=== PATIENT | male | born 1960 | race African-American/Black ===

== ENCOUNTER 2017-03-06 17:10 | Emergency (ER) | payer OTHER ==
[2017-03-06 17:24] VITALS: BP 124/70
[2017-03-06] MEDS ORDERED: NORMAL SALINE 1000 ML 1,000 ML IV ONE (17:52)
[2017-03-06] MEDS ORDERED: ONDANSETRON 4 MG TAB.RAPDIS PO ONE (17:52)
[2017-03-06] MEDS ORDERED: MORPHINE SULFATE 10 MG/ML INJ IV ONE (17:52)
--- NOTE | 2017-03-06 17:58 | ER Document Report ---
ED Medical Screen (RME) - General Chief Complaint: Abdominal Pain Stated Complaint: ABDOMINAL PAIN,VOMITING Time Seen by Provider: 03/06/17 17:51 Notes: Patient states he has been constipated for approximately 5 days. He also started vomiting today. He states he has had diffuse abdominal pain. He denies any previous abdominal surgeries. TRAVEL OUTSIDE OF THE [place] IN LAST 30 DAYS: No - Related Data Allergies/Adverse Reactions: No Known Allergies Allergy (Unverified 03/06/17 17:24) Past Medical History - Social History Frequency of alcohol use: None Drug Abuse: None Endocrine Medical History: Reports: Hx Diabetes Mellitus Type 2 Renal/ Medical History: Denies: Hx Peritoneal Dialysis Physical Exam - Vital signs Vitals: Temp Pulse Resp BP Pulse Ox 98.8 F 88 16 124/70 97 03/06/17 17:22 03/06/17 17:22 03/06/17 17:22 03/06/17 17:22 03/06/17 17:22 Course - Vital Signs Vital signs: Temp Pulse Resp BP Pulse Ox 98.8 F 88 16 124/70 97 03/06/17 17:22 03/06/17 17:22 03/06/17 17:22 03/06/17 17:22 03/06/17 17:22
[2017-03-06 19:00] LABS: HEMATOCRIT 47.7 % (37.9-51.0); HEMOGLOBIN 15.8 g/dL (13.5-17.0); HGB HCT DIFFERENCE -0.3; MEAN CORPUSCULAR HEMOGLOBIN 27.4 pg (27.0-33.4); MEAN CORPUSCULAR HGB CONC 33.2 g/dL (32.0-36.0); MEAN CORPUSCULAR VOLUME 83 fl (80-97); RED BLOOD COUNT 5.78 10^6/uL (4.35-5.55); RED CELL DISTRIBUTION WIDTH 14.1 % (11.5-14.0); WHITE BLOOD COUNT 20.7 10^3/uL (4.0-10.5)
[2017-03-06 19:19] LABS: ALANINE AMINOTRANSFERASE 261 U/L (21-72); ALBUMIN 4.4 g/dL (3.5-5.0); ALKALINE PHOSPHATASE 292 U/L (38-126); ANION GAP 15 (5-19); ASPARTATE AMINO TRANSFERASE 132 U/L (17-59); BLOOD UREA NITROGEN 13 mg/dL (7-20); CALCIUM 9.9 mg/dL (8.4-10.2); CARBON DIOXIDE 22 mmol/L (22-30); CHLORIDE 102 mmol/L (98-107); CREATININE RESULT 0.83 mg/dL (0.52-1.25); GLUCOSE 128 mg/dL (75-110); POTASSIUM 4.6 mmol/L (3.6-5.0); SODIUM 139.2 mmol/L (137-145); TOTAL PROTEIN 8.2 g/dL (6.3-8.2)
[2017-03-06 19:21] LABS: BASOPHILS % (MANUAL) 0 % (0-2); EOSINOPHILS % (MANUAL) 0 % (0-6); LYMPHOCYTES % (MANUAL) 9 % (13-45); TOTAL CELLS COUNTED 100
[2017-03-06 19:24] LABS: TOXIC GRANULATION 1+
[2017-03-06 20:01] LABS: LIPASE 5957.9 U/L (23-300)
[2017-03-06] MEDS ORDERED: ONDANSETRON HCL INJ/PF 4 MG/2 ML SDV IV ONE (20:55)
[2017-03-06] MEDS ORDERED: MORPHINE SULFATE 10 MG/ML INJ IV PRN (20:55)
[2017-03-06 21:24] LABS: APPEARANCE,URINE SLIGHTLY-CLOUDY; BILIRUBIN,URINE SMALL (NEGATIVE); GLUCOSE, URINE NEGATIVE (NEGATIVE); KETONES,URINE NEGATIVE (NEGATIVE); LEUKOCYTE ESTERASE,URINE NEGATIVE (NEGATIVE); NITRITE,URINE NEGATIVE (NEGATIVE); PROTEIN,URINE 30 mg/dL (NEGATIVE); URINE SPECIFIC GRAVITY 1.024
--- NOTE | 2017-03-06 21:26 | ER Document Report ---
ED General - General Chief Complaint: Abdominal Pain Stated Complaint: ABDOMINAL PAIN,VOMITING Time Seen by Provider: 03/06/17 17:51 Notes: Patient is a 56-year-old male with a past medical history of hypertension, non- insulin-dependent diabetes, medication noncompliance who presents with 5 days of abdominal discomfort, inability to have a bowel movement, and 1 day of vomiting. Patient states that he came at the behest of his . He is a guarded historian and most of the history is as provided by his at the bedside. She relates that for the past 5 days patient has had progressively worsening pain in his abdomen, difficulty eating and drinking and has began to have vomiting today. He has no prior history of similar symptoms in the past. He has never had any abdominal surgeries. He has no prior history of bowel obstructions. Nothing seems to improve or worsen his symptoms. The patient does describe his pain as a mild, cramping, general abdominal pain. He denies anything improves or worsens the pain. Patient repeatedly states that he is here to get something to help him pass gas and have a bowel movement and would like to go home. TRAVEL OUTSIDE OF THE [place] IN LAST 30 DAYS: No - Related Data Allergies/Adverse Reactions: No Known Allergies Allergy (Unverified 03/06/17 17:24) Past Medical History - General Information source: Patient - Social History Smoking Status: Current Every Day Smoker Frequency of alcohol use: None Drug Abuse: None Lives with: Spouse/Significant other Family History: Reviewed & Not Pertinent Patient has suicidal ideation: No Patient has homicidal ideation: No Endocrine Medical History: Reports: Hx Diabetes Mellitus Type 2 Renal/ Medical History: Denies: Hx Peritoneal Dialysis Review of Systems - Review of Systems Notes: Constitutional: Negative for fever. HENT: Negative for sore throat. Eyes: Negative for visual changes. Cardiovascular: Negative for chest pain. Respiratory: Negative for shortness of breath. Gastrointestinal: Positive for abdominal pain, vomiting, and constipation Genitourinary: Negative for dysuria. Musculoskeletal: Negative for back pain. Skin: Negative for rash. Neurological: Negative for headaches, weakness or numbness. 10 point ROS negative except as marked above and in HPI. Physical Exam - Vital signs Vitals: Temp Pulse Resp BP Pulse Ox 98.8 F 88 16 124/70 97 03/06/17 17:22 03/06/17 17:22 03/06/17 17:22 03/06/17 17:22 03/06/17 17:22 Interpretation: Normal Notes: PHYSICAL EXAMINATION: GENERAL: Appears mildly uncomfortable but in no acute distress HEAD: Atraumatic, normocephalic. EYES: Pupils equal round and reactive to light, extraocular movements intact, sclera anicteric, conjunctiva are normal. ENT: nares patent, oropharynx clear without exudates. Dry mucous membranes. NECK: Normal range of motion, supple without lymphadenopathy LUNGS: Breath sounds clear to auscultation bilaterally and equal. No wheezes rales or rhonchi. HEART: Regular rate and rhythm without murmurs ABDOMEN: Soft, diffuse tenderness in the upper abdomen most appreciable in the right upper and epigastric quadrants. No rebound or guarding. EXTREMITIES: Normal range of motion, no pitting or edema. No cyanosis. NEUROLOGICAL: No focal neurological deficits. Moves all extremities spontaneously and on command. PSYCH: Somewhat agitated, redirectable SKIN: Warm, Dry, normal turgor, no rashes or lesions noted. Course - Re-evaluation Re-evalutation: 03/06/17 21:25 Presentation is quite worrisome for choledocholithiasis with an associated pancreatitis. LFTs, alk phos, bilirubin are all elevated. Patient denies any alcohol use of the elevated consistent with an acute pancreatitis. Given the constellation of his laboratories I believe a distal obstructing stone is likely etiology of patient's epigastric abdominal pain, vomiting. He has no prior history of abdominal surgeries. His white count is also noted to be markedly elevated at 20. He has been made n.p.o. IV fluids have been initiated. Will obtain ultrasound and reassess. will contact tertiary referral center for ERCP. 03/07/17 00:02 I have spent over 25 minutes at the bedside with the patient and his explaining my concerns of choledocholithiasis with associated pancreatitis at length to the patient. Patient continues to persist that he does not believe there is anything wrong with him, he does not acknowledge labs and imaging studies that I have reviewed with him at length at the bedside. His ultrasound does show findings concerning for a possible acute cholecystitis but all of this is unified well under a distal obstructing stone which would cause gallbladder swelling as well as an acute pancreatitis and the lab findings that we have seen. He has received IV Zosyn, fluids, and receives pain control approximately over 2 hours despite continuing to state that he does not feel he needs anything to help control his symptoms. His at the bedside has been involved in the conversation and is advocating for the patient to follow my care plan. 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 I have also contacted the surgeon on-call Dr. Barney who likewise agrees that patient does require an ERCP and should be transferred if he will agree. Will continue to try to address any of the patient's needs and encouraged him to comply with treatment plan. 03/07/17 03:13 The patient has chosen to leave the facility against medical advice. The relevant issues have been reviewed and discussed with the patient and family at the bedside. At the time of this assessment there is no indication for involuntary commitment. The patient is alert, oriented, and able to express clearly their reasoning for not wanting to remain in the emergency department for further treatment. The patient is not clinically psychotic, intoxicated, and denies and suicidal ideation. Differential or suspected diagnoses based on medical screening exam: Choledocholithiasis with associated acute cholecystitis and pancreatitis The patient is aware of the concerning diagnoses and acknowledges understanding of the reasons for the following recommendations: Transfer to an alternative facility for ERCP, cholecystectomy, IV antibiotics, IV fluids, and clinical monitoring The following risks were explained: , worsening clinical course, permanent disability, loss of function - Vital Signs Vital signs: Temp Pulse Resp BP Pulse Ox 98.8 F 88 16 124/70 97 03/06/17 17:22 03/06/17 17:22 03/06/17 17:22 03/06/17 17:22 03/06/17 17:22 - Laboratory Result Diagrams: 03/06/17 18:22 03/06/17 18:22 Laboratory results interpreted by me: 03/06/17 03/06/17 03/06/17 18:22 18:22 21:05 WBC 20.7 H RBC 5.78 H RDW 14.1 H Seg Neuts % (Manual) 84 H Lymphocytes % (Manual) 9 L Abs Neuts (Manual) 17.4 H Glucose 128 H Total Bilirubin 4.0 H Direct Bilirubin 3.0 H AST 132 H ALT 261 H Alkaline Phosphatase 292 H Lipase 5957.9 H Urine Protein 30 H Urine Blood SMALL H Urine Bilirubin SMALL H Urine Urobilinogen 4.0 H - Diagnostic Test Radiology reviewed: Reports reviewed Critical Care Note - Critical Care Note Total time excluding time spent on procedures (mins): 38 Comments: Critical care time spent obtaining history from patient or surrogate, discussions with consultants, development of treatment plan with patient or surrogate, evaluation of patient's response to treatment, examination of patient , ordering and performing treatments and interventions, ordering and review of laboratory studies, re-evaluation of patient's condition, ordering and review of radiographic studies and review of old charts Discharge - Discharge Clinical Impression: Acute cholecystitis, Choledocholithiasis Acute pancreatitis Qualifiers: Pancreatitis type: biliary Acute pancreatitis complication: unspecified Qualified Code(s): K85.10 - Biliary acute pancreatitis without necrosis or infection Condition: Serious Disposition: AGAINST MEDICAL ADVICE
--- NOTE | 2017-03-06 22:25 | RADIOLOGY REPORT (SQ) ---
EXAM DESCRIPTION: U/S ABDOMEN LIMITED W/O DOP COMPLETED DATE/TIME: 03/06/2017 10:12 pm REASON FOR STUDY: eval gallstone induced pancreatitis COMPARISON: None. TECHNIQUE: Dynamic and static grayscale images acquired of the abdomen and recorded on PACS. Additio nal selected color Doppler and spectral images recorded. LIMITATIONS: Study is limited due to overlying bowel gas. FINDINGS: PANCREAS: The pancreas could not be visualized due to overlying bowel gas. LIVER: No masses. Echotexture normal. LIVER VASCULATURE: Normal blood flow is identified in the portal vein. GALLBLADDER: There is generalized increased echogenicity within the gallbladder lumen with scattered focal areas of focal echogenicity consistent with gallstones as well as a component of biliary sludge . There is some thickening of the wright of the gallbladder and the possibility of cholecystitis shou ld be considered. INTRAHEPATIC DUCTS AND COMMON DUCT: CBD and intrahepatic ducts normal caliber. No filling defects. INFERIOR VENA CAVA: Not visualized AORTA: Not visualized RIGHT KIDNEY: Normal size. Normal echogenicity. No solid or suspicious masses. No hydronephrosis. No calcifications. PERITONEAL AND RIGHT PLEURAL SPACE: No ascites or effusions. OTHER: No other significant findings. IMPRESSION: Limited study as noted above. Findings consistent with multiple small gallstones as wel l as a component of biliary sludge. There is some thickening of the wright of the gallbladder and the possibility of cholecystitis should be considered. Other findings as noted above TECHNICAL DOCUMENTATION: JOB ID: [id number] [employer]- All Rights Reserved
[2017-03-06] MEDS ORDERED: PIPERACILLIN/TAZOBACTAM 3.375 GM VIAL IV ONE (23:59)
[2017-03-07] MEDS ORDERED: NORMAL SALINE 1000 ML 1,000 ML IV ONE (00:01)
== END 2017-03-07 00:30 | disposition left against medical advice (07) ==
LOC: ER 17:10
DX: K80.42 Calculus of bile duct with acute cholecystitis without obstruction (principal); K85.10 Biliary acute pancreatitis without necrosis or infection; R10.9 Unspecified abdominal pain; R11.10 Vomiting, unspecified; I10 Essential (primary) hypertension; E11.9 Type 2 diabetes mellitus without complications; F17.200 Nicotine dependence, unspecified, uncomplicated
CPT/HCPCS: 96376; 99285; 96361; 96374; 96375; 36415; 83690; 85025; 80053; 81001; 76705; S0119; J2270; J2405; J7030

== ENCOUNTER 2017-03-07 22:49 | Inpatient (IN) | payer OTHER ==
[2017-03-07 23:54] LABS: ABSOLUTE BASOPHILS # (AUTO) 0.1 10^3/uL (0.0-0.2); ABSOLUTE EOSINOPHILS # (AUTO) 0.1 10^3/uL (0.0-0.6); ABSOLUTE MONOCYTES (AUTO) 1.3 10^3/uL (0.1-1.4); ABSOLUTE NEUT (AUTO) 13.9 10^3/uL (1.7-8.2); BASOPHILS % (AUTO) 0.4 % (0-2); EOSINOPHILS % (AUTO) 0.8 % (0-6); HEMATOCRIT 43.6 % (37.9-51.0); HEMOGLOBIN 14.4 g/dL (13.5-17.0); HGB HCT DIFFERENCE -0.4; LYMPHOCYTES % (AUTO) 11.3 % (13-45); MEAN CORPUSCULAR HEMOGLOBIN 27.5 pg (27.0-33.4); MEAN CORPUSCULAR HGB CONC 33.1 g/dL (32.0-36.0); MEAN CORPUSCULAR VOLUME 83 fl (80-97); MONOCYTES % (AUTO) 7.6 % (3-13); RED BLOOD COUNT 5.25 10^6/uL (4.35-5.55); RED CELL DISTRIBUTION WIDTH 14.1 % (11.5-14.0); SEGMENTED NEUTROPHILS % (AUTO) 79.9 % (42-78); WHITE BLOOD COUNT 17.4 10^3/uL (4.0-10.5)
--- NOTE | 2017-03-08 00:09 | ER Document Report ---
ED General - General Chief Complaint: Abdominal Pain Stated Complaint: ABDOMINAL PAIN Time Seen by Provider: 03/07/17 23:08 Notes: Patient is a 56-year-old male well-known to me from our encounter yesterday who presents with ongoing right upper quadrant and epigastric abdominal pain. Please review the complete note from yesterday for the prior history. The patient has had 6 days now of persistent right upper quadrant and epigastric abdominal pain. He does describe as a constant, cramping, throbbing pain. He states eating worsens the pain. Nothing improves the pain. He was seen in the emergency department yesterday and left AGAINST MEDICAL ADVICE after being advised that he had choledocholithiasis, acute cholecystitis and pancreatitis. He denies any fever at home. He has had nausea but no vomiting today. He did not going to [place] yet today as advised TRAVEL OUTSIDE OF THE [place] IN LAST 30 DAYS: No - Related Data Allergies/Adverse Reactions: No Known Allergies Allergy (Unverified 03/06/17 17:24) Past Medical History - General Information source: Patient - Social History Smoking Status: Current Every Day Smoker Frequency of alcohol use: None Drug Abuse: None Lives with: Family Family History: Reviewed & Not Pertinent Patient has suicidal ideation: No Patient has homicidal ideation: No Endocrine Medical History: Reports: Hx Diabetes Mellitus Type 2 Renal/ Medical History: Denies: Hx Peritoneal Dialysis Review of Systems - Review of Systems Notes: Constitutional: Negative for fever. HENT: Negative for sore throat. Eyes: Negative for visual changes. Cardiovascular: Negative for chest pain. Respiratory: Negative for shortness of breath. Gastrointestinal: Positive for abdominal pain and vomiting Genitourinary: Negative for dysuria. Musculoskeletal: Negative for back pain. Skin: Negative for rash. Neurological: Negative for headaches, weakness or numbness. 10 point ROS negative except as marked above and in HPI. Physical Exam - Vital signs Vitals: Temp Pulse Resp BP Pulse Ox 98.8 F 89 16 155/73 H 96 03/07/17 23:05 03/07/17 23:05 03/07/17 23:05 03/07/17 23:05 03/07/17 23:05 Interpretation: Hypertensive Notes: PHYSICAL EXAMINATION: GENERAL: Well-appearing, well-nourished and in no acute distress. HEAD: Atraumatic, normocephalic. EYES: Pupils equal round and reactive to light, extraocular movements intact, sclera anicteric, conjunctiva are normal. ENT: nares patent, oropharynx clear without exudates. Moderately dry mucous membranes. NECK: Normal range of motion, supple without lymphadenopathy LUNGS: Breath sounds clear to auscultation bilaterally and equal. No wheezes rales or rhonchi. HEART: Regular rate and rhythm without murmurs ABDOMEN: Soft, right upper quadrant and epigastric abdominal pain on palpation. No rebound or guarding EXTREMITIES: Normal range of motion, no pitting or edema. No cyanosis. NEUROLOGICAL: No focal neurological deficits. Moves all extremities spontaneously and on command. PSYCH: Normal mood, normal affect. SKIN: Warm, Dry, normal turgor, no rashes or lesions noted. Course - Re-evaluation Re-evalutation: 03/08/17 00:15 Patient returns after being evaluated yesterday by me and leaving AGAINST MEDICAL ADVICE with concerns of an acute cholecystitis, pancreatitis, and choledocholithiasis. Patient states he has continued to have persistent upper abdominal pain today, has had nausea and been unable to tolerate oral solid intake. He states his family has convinced him to return to comply with treatment today. On repeat examination he remains a focal tenderness to the epigastric and right upper quadrant. He does appear somewhat clinically dehydrated. Vitals show hypertension but are otherwise unremarkable. Laboratories will be repeated. 03/08/17 01:11 Patient labs have markedly improved from yesterday other his lipase remains mildly elevated and he continues leukocytosis. It appears the patient has had passage of the distal obstructing stone. He does however still require a cholecystectomy given the prior evaluation. I have consulted with Dr. Mcduffie who agrees to admit the patient for cholecystectomy. IV Zosyn and fluids have been initiated. - Vital Signs Vital signs: Temp Pulse Resp BP Pulse Ox 98.8 F 89 16 155/73 H 96 03/07/17 23:05 03/07/17 23:05 03/07/17 23:05 03/07/17 23:05 03/07/17 23:05 - Laboratory Result Diagrams: 03/07/17 23:40 03/07/17 23:40 Laboratory results interpreted by me: 03/07/17 03/07/17 03/07/17 23:40 23:40 23:40 WBC 17.4 H RDW 14.1 H Seg Neutrophils % 79.9 H Lymphocytes % 11.3 L Absolute Neutrophils 13.9 H Sodium 136.6 L Glucose 145 H Hemoglobin A1c % 7.8 H Total Bilirubin 1.6 H Direct Bilirubin 1.1 H ALT 171 H Alkaline Phosphatase 235 H Lipase 709.5 H Discharge - Discharge Clinical Impression: Acute cholecystitis Condition: Good Disposition: ADMITTED INPATIENT Admitting Provider: Surgicalist - [facility] Admitted: Surgical Floor
[2017-03-08] MEDS ORDERED: NORMAL SALINE 1000 ML 1,000 ML IV ONE (00:16)
[2017-03-08] MEDS ORDERED: MORPHINE SULFATE 10 MG/ML INJ IV PRN ×2 (00:16→13:29)
[2017-03-08] MEDS ORDERED: ONDANSETRON HCL INJ/PF 4 MG/2 ML SDV IV ONE (00:16)
[2017-03-08] MEDS ORDERED: PIPERACILLIN/TAZOBACTAM 3.375 GM VIAL IV ONE ×2 (00:16→04:37)
[2017-03-08 00:22] LABS: ALANINE AMINOTRANSFERASE 171 U/L (21-72); ALBUMIN 3.8 g/dL (3.5-5.0); ALKALINE PHOSPHATASE 235 U/L (38-126); ANION GAP 11 (5-19); ASPARTATE AMINO TRANSFERASE 55 U/L (17-59); BILIRUBIN,DIRECT 1.1 mg/dL (0.0-0.4); BILIRUBIN,TOTAL 1.6 mg/dL (0.2-1.3); BLOOD UREA NITROGEN 13 mg/dL (7-20); CALCIUM 9.5 mg/dL (8.4-10.2); CARBON DIOXIDE 26 mmol/L (22-30); CHLORIDE 100 mmol/L (98-107); CREATININE RESULT 0.78 mg/dL (0.52-1.25); GLUCOSE 145 mg/dL (75-110); LIPASE 709.5 U/L (23-300); SODIUM 136.6 mmol/L (137-145); TOTAL PROTEIN 7.4 g/dL (6.3-8.2)
--- NOTE | 2017-03-08 01:21 | PDOC H&P ---
History of Present Illness Admission Date/PCP: 03/08/17 Patient complains of: Abdominal pains History of Present Illness: DELIO BAEZ is a 56 year old male who has been complaining of epigastric and right upper quadrant pains for the past 6 days. He initially came to the emergency room about 2 days ago where he had an ultrasound of the gallbladder which showed gallbladder sludge with thickened wall and but no evidence of dilated bile ducts. His LFTs were elevated as well as lipase to 5700. Bilirubin was up to 3. However today's blood work showed the bilirubin is down to 1.2 and lipase down to 700. Also he claims his urine was highly colored when he came in 2 days ago and today he sure urine is a aluminum polisher. Past Medical History Endocrine Medical History: Reports: Diabetes Mellitus Type 2 Past Surgical History Past Surgical History: Reports: None Social History Smoking Status: Current Every Day Smoker Cigarettes Packs Per Day: 1 Frequency of Alcohol Use: None Hx Recreational Drug Use: No - Advance Directive Resuscitation Status: Full Code Family History Family History: Reviewed & Not Pertinent Parental Family History Reviewed: Yes - Mother has type 2 diabetes and takes Metformin Children Family History Reviewed: No Sibling(s) Family History Reviewed.: No Medication/Allergy Home Medications: Famotidine [Pepcid 20 mg Tablet] 20 mg PO BID #12 tablet 05/30/13 Metformin HCl [Glucophage] 500 mg PO BID #60 tablet 05/30/13 Allergies/Adverse Reactions: No Known Allergies Allergy (Unverified 03/06/17 17:24) Review of Systems Constitutional: PRESENT: anorexia Eyes: PRESENT: other - No visual or hearing problems Nose, Mouth, and Throat: PRESENT: other - No sore throat Cardiovascular: PRESENT: other - No chest pain Respiratory: PRESENT: other - No cough no shortness of breath Gastrointestinal: PRESENT: as per HPI, other - Abdomen is soft but tender at the epigastric and right upper quadrant areas. Genitourinary: PRESENT: other - No dysuria Musculoskeletal: PRESENT: other - No joint pain Integumentary: PRESENT: other - No skin rash Neurological: PRESENT: other - No syncopal episode Psychiatric: PRESENT: other - No suicidal ideation Endocrine: PRESENT: other - No polyuria nor polydipsia Hematologic/Lymphatic: PRESENT: other - No easy bruisability or lymphadenopathy Physical Exam Vital Signs: Temp Pulse Resp BP Pulse Ox 98.8 F 89 16 155/73 H 96 03/07/17 23:05 03/07/17 23:05 03/07/17 23:05 03/07/17 23:05 03/07/17 23:05 Intake & Output 03/06/17 03/07/17 03/08/17 06:59 06:59 06:59 Weight 112.945 kg General appearance: PRESENT: mild distress Head exam: PRESENT: atraumatic, normocephalic Eye exam: PRESENT: conjunctiva pink Ear exam: PRESENT: normal external ear exam Mouth exam: PRESENT: moist, tongue midline Neck exam: PRESENT: full ROM Respiratory exam: PRESENT: clear to auscultation tico Cardiovascular exam: PRESENT: RRR Pulses: PRESENT: normal radial pulses Vascular exam: PRESENT: normal capillary refill GI/Abdominal exam: PRESENT: soft, tenderness - Tenderness in the epigastric and right upper quadrant areas Rectal exam: PRESENT: deferred Extremities exam: PRESENT: full ROM Musculoskeletal exam: PRESENT: ambulatory Skin exam: PRESENT: normal color, warm Results Laboratory Results: 03/07/17 23:40 03/07/17 23:40 03/07/17 03/07/17 23:40 23:40 WBC 17.4 H RBC 5.25 Hgb 14.4 Hct 43.6 MCV 83 MCH 27.5 MCHC 33.1 RDW 14.1 H Plt Count 201 Seg Neutrophils % 79.9 H Lymphocytes % 11.3 L Monocytes % 7.6 Eosinophils % 0.8 Basophils % 0.4 Absolute Neutrophils 13.9 H Absolute Lymphocytes 2.0 Absolute Monocytes 1.3 Absolute Eosinophils 0.1 Absolute Basophils 0.1 Sodium 136.6 L Potassium 4.0 Chloride 100 Carbon Dioxide 26 Anion Gap 11 BUN 13 Creatinine 0.78 Est GFR ( Amer) > 60 Est GFR (Non-Af Amer) > 60 Glucose 145 H Calcium 9.5 Total Bilirubin 1.6 H AST 55 ALT 171 H Alkaline Phosphatase 235 H Total Protein 7.4 Albumin 3.8 Lipase 709.5 H Assessment & Plan - Time Time Spent: 30 to 50 Minutes - Inpatient Certification Medical Necessity: Need For IV Fluids, Need for Pain Control, Need for IV Antibiotics, Need for Surgery - Plan Summary Plan Summary: #1 continue n.p.o. and hydration 2. Start IV antibiotics 3. Monitor lipase and LFTs and if continues to trend down patient for possible laparoscopic cholecystectomy with intraoperative cholangiogram possible open 4. Parenteral pain management
[2017-03-08] MEDS ORDERED: NORMAL SALINE 1000 ML 1,000 ML IV PRN (01:23)
[2017-03-08] MEDS ORDERED: ONDANSETRON HCL INJ/PF 4 MG/2 ML SDV IV PRN (01:35)
[2017-03-08] MEDS ORDERED: PIPERACILLIN/TAZOBACTAM 3.375 GM VIAL IV SCH (01:45)
[2017-03-08] MEDS ORDERED: NALOXONE HCL INJ/PF 0.4 MG/1 ML SDV IV PRN (01:58)
[2017-03-08] MEDS ORDERED: DEXTROSE 40% GEL 15 GM TUBE PO PRN ×2 (01:59)
[2017-03-08] MEDS ORDERED: GLUCAGON,HUMAN RECOMB 1 MG INJ IM PRN (01:59)
[2017-03-08] MEDS ORDERED: INSULIN LISPRO 100 UNIT/ML 3 ML VIAL SUBCUT PRN (01:59)
[2017-03-08] MEDS ORDERED: DEXTROSE 50%-WATER 25 GM/50 ML DISP.SYRIN IV PRN ×2 (01:59)
[2017-03-08] MEDS ORDERED: PIPERACILLIN/TAZOBACTAM 3.375 GM VIAL IV PRN (04:33)
[2017-03-08 05:36] LABS: HEMATOCRIT 39.9 % (37.9-51.0); HEMOGLOBIN 13.2 g/dL (13.5-17.0); HGB HCT DIFFERENCE -0.3; MEAN CORPUSCULAR HEMOGLOBIN 27.8 pg (27.0-33.4); MEAN CORPUSCULAR HGB CONC 33.1 g/dL (32.0-36.0); MEAN CORPUSCULAR VOLUME 84 fl (80-97); RED BLOOD COUNT 4.76 10^6/uL (4.35-5.55); RED CELL DISTRIBUTION WIDTH 14.1 % (11.5-14.0); WHITE BLOOD COUNT 15.4 10^3/uL (4.0-10.5)
[2017-03-08] MEDS: PIPERACILLIN SODIUM/TAZOBACTAM 3.375 GM in NORMAL SALINE 100 ML IV SCH ×3 (05:39→20:51)
[2017-03-08 05:58] LABS: ALANINE AMINOTRANSFERASE 143 U/L (21-72); ALBUMIN 3.2 g/dL (3.5-5.0); ALKALINE PHOSPHATASE 199 U/L (38-126); ANION GAP 10 (5-19); ASPARTATE AMINO TRANSFERASE 46 U/L (17-59); BILIRUBIN,DIRECT 0.8 mg/dL (0.0-0.4); BILIRUBIN,TOTAL 1.3 mg/dL (0.2-1.3); BLOOD UREA NITROGEN 12 mg/dL (7-20); CALCIUM 8.7 mg/dL (8.4-10.2); CARBON DIOXIDE 25 mmol/L (22-30); CHLORIDE 104 mmol/L (98-107); CREATININE RESULT 0.75 mg/dL (0.52-1.25); GLUCOSE 108 mg/dL (75-110); POTASSIUM 4.3 mmol/L (3.6-5.0); SODIUM 139.2 mmol/L (137-145); TOTAL PROTEIN 6.2 g/dL (6.3-8.2)
--- NOTE | 2017-03-08 06:33 | PDOC CONSULTATION ---
Consultation Consult Date: 03/07/17 Attending physician:: ANKIT FORREST Consult reason:: DM History of Present Illness Admission Date/PCP: 03/08/17 01:30 History of Present Illness: DELIO BAEZ is a 56 year old male who was previously diagnosed as diabetic and stopped taking medication. Patient reports that he started having abdominal pain before . He reports was a generalized abdominal pain but started to get worse on Monday localizing then to the right upper quadrant midepigastrium. He was able to eat a little according to him over the holiday, but had significant nausea and vomiting. He then began to become intolerant of all p.o. intake with vomiting. He denied any radiation of his pain. Patient was seen in the emergency department on [address] Arroyo's notes for this and diagnosed with gallstone pancreatitis. Consistent with this picture was patient's elevated liver function tests as well as a ultrasound of the gallbladder showing gallbladder wall thickening as well as sludge and small stones. Patient at that time also had an elevated lipase. Patient now re-presents to the emergency department with ongoing abdominal pain. Patient does report the pain is somewhat improved and his laboratory studies do concur with this assessment. Patient was referred to surgery for cholecystectomy and hospitalists were asked to consult for diabetes mellitus. Past Medical History Endocrine Medical History: Reports: Diabetes Mellitus Type 2 Past Surgical History Past Surgical History: Reports: None Social History Smoking Status: Current Every Day Smoker Cigarettes Packs Per Day: 1 Frequency of Alcohol Use: None Hx Recreational Drug Use: No Hx Prescription Drug Abuse: No - Advance Directive Resuscitation Status: Full Code Surrogate healthcare decision maker:: Maryam Baez, Family History Family History: DM Parental Family History Reviewed: Yes Children Family History Reviewed: Yes Sibling(s) Family History Reviewed.: Yes Medication/Allergy Home Medications: Famotidine [Pepcid 20 mg Tablet] 20 mg PO BID #12 tablet 05/30/13 Metformin HCl [Glucophage] 500 mg PO BID #60 tablet 05/30/13 Allergies/Adverse Reactions: No Known Allergies Allergy (Unverified 03/06/17 17:24) Review of Systems Constitutional: PRESENT: anorexia, chills, fatigue, weakness, weight loss - Reports 40 pounds over the last several years. ABSENT: fever(s), headache(s), weight gain Eyes: ABSENT: visual disturbances Ears: ABSENT: hearing changes Cardiovascular: ABSENT: chest pain, dyspnea on exertion, edema, orthropnea, palpitations Respiratory: ABSENT: cough, hemoptysis Gastrointestinal: PRESENT: abdominal pain, melena, nausea, vomiting. ABSENT: constipation, diarrhea, heartburn, hematemesis, hematochezia Genitourinary: ABSENT: dysuria, hematuria Musculoskeletal: ABSENT: joint swelling Integumentary: ABSENT: rash, wounds Neurological: ABSENT: abnormal gait, abnormal speech, confusion, dizziness, focal weakness, syncope Psychiatric: ABSENT: anxiety, depression, homidical ideation, suicidal ideation Endocrine: ABSENT: cold intolerance, heat intolerance, polydipsia, polyuria Hematologic/Lymphatic: ABSENT: easy bleeding, easy bruising Physical Exam Vital Signs: Temp Pulse Resp BP Pulse Ox 98.8 F 89 16 155/73 H 96 03/07/17 23:05 03/07/17 23:05 03/07/17 23:05 03/07/17 23:05 03/07/17 23:05 General appearance: PRESENT: mild distress, obese, well-developed, well- nourished Head exam: PRESENT: atraumatic, normocephalic Eye exam: PRESENT: conjunctiva pink, EOMI, PERRLA. ABSENT: conjunctival injection, scleral icterus Ear exam: PRESENT: normal external ear exam Mouth exam: PRESENT: moist, tongue midline Teeth exam: PRESENT: poor dentation Neck exam: ABSENT: JVD, lymphadenopathy, thyromegaly, tracheal deviation Respiratory exam: PRESENT: clear to auscultation tico, symmetrical, unlabored. ABSENT: accessory muscle use, rales, rhonchi, wheezes Cardiovascular exam: PRESENT: RRR, +S1, +S2. ABSENT: diastolic murmur, gallop, rubs, systolic murmur Pulses: PRESENT: normal dorsalis pedis pul Vascular exam: PRESENT: normal capillary refill GI/Abdominal exam: PRESENT: Ramirez's sign, normal bowel sounds, soft, tenderness - Right upper quadrant. ABSENT: ascites, distended, firm, guarding, mass, organolmegaly, rebound, rigid Rectal exam: PRESENT: deferred Extremities exam: PRESENT: clubbing, full ROM. ABSENT: calf tenderness, pedal edema Neurological exam: PRESENT: alert, awake, oriented to person, oriented to place , oriented to time, oriented to situation, CN II-XII grossly intact. ABSENT: motor sensory deficit Psychiatric exam: PRESENT: appropriate affect, normal mood. ABSENT: homicidal ideation, suicidal ideation Skin exam: PRESENT: dry, intact, warm. ABSENT: cyanosis, rash Results Laboratory Results: 03/07/17 03/07/17 23:40 23:40 WBC 17.4 H Hgb 14.4 Hct 43.6 Plt Count 201 Sodium 136.6 L Potassium 4.0 Chloride 100 Carbon Dioxide 26 Anion Gap 11 BUN 13 Creatinine 0.78 Glucose 145 H Calcium 9.5 Total Bilirubin 1.6 H Direct Bilirubin 1.1 H AST 55 ALT 171 H Alkaline Phosphatase 235 H Total Protein 7.4 Albumin 3.8 Lipase 709.5 H Status: Imported from PACS Assessment & Plan - Diagnosis (1) Acute cholecystitis Is this a current diagnosis for this admission?: Yes Plan: Defer treatment of patient's acute cholecystitis as well as all complications related to this to the surgical primary team. Agree with current usage of Zosyn and IV fluids as well as surgical intervention when deemed appropriate. (2) Acute pancreatitis Qualifiers: Pancreatitis type: biliary Acute pancreatitis complication: unspecified Qualified Code(s): K85.10 - Biliary acute pancreatitis without necrosis or infection Is this a current diagnosis for this admission?: Yes Plan: Patient likely suffered from a gallstone pancreatitis which appears to be resolving. Again defer treatment of this and all issues relating to this to the surgical team. 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 Will place patient on metformin once able to take p.o. (4) Obesity (BMI 30.0-34.9) Is this a current diagnosis for this admission?: Yes (5) Tobacco abuse Is this a current diagnosis for this admission?: Yes - Time Time Spent: 30 to 50 Minutes Medications reviewed and adjusted accordingly: Yes Anticipated discharge: Home Within: Other - Upon improvement of symptomatology
--- NOTE | 2017-03-08 08:13 | EKG REPORT ---
SEVERITY:- ABNORMAL ECG - SINUS RHYTHM BORDERLINE IVCD WITH LAD ABNORMAL T, CONSIDER ISCHEMIA, INFERIOR LEADS : Confirmed by: Fitz Arguelles MD 08-Mar-2017 08:12:54
[2017-03-08] MEDS ORDERED: LORAZEPAM INJ 2 MG/1 ML VIAL IV ONE (09:31)
[2017-03-08] MEDS ORDERED: BUPIVACAINE HCL 0.25% /EPINEPHRINE INJ/PF 30 ML SDV ONE (09:52)
[2017-03-08] MEDS ORDERED: DEXAMETHASONE SOD PHOSPHATE INJ 4 MG/1 ML VIAL ONE (10:26)
[2017-03-08] MEDS ORDERED: GLYCOPYRROLATE INJ 0.4 MG/2 ML VIAL ONE (10:26)
[2017-03-08] MEDS ORDERED: NEOSTIGMINE METHYLSULFATE 10 MG/10 ML VIAL ONE (10:26)
[2017-03-08] MEDS ORDERED: ONDANSETRON HCL INJ/PF 4 MG/2 ML SDV ONE (10:26)
[2017-03-08] MEDS ORDERED: ROCURONIUM BROMIDE INJ 50 MG/5 ML VIAL IV ONE (10:26)
[2017-03-08] MEDS ORDERED: LIDOCAINE 2% INJ-PF (20 MG/ML) 2 ML AMPUL ONE (10:26)
[2017-03-08] MEDS ORDERED: SUCCINYLCHOLINE CHLORIDE INJ 200 MG/10 ML VIAL ONE (10:26)
--- NOTE | 2017-03-08 11:43 | PROGRESS NOTE E ---
Progress Note NAME: DELIO BAEZ : 1960 AGE: 56Y DATE: 03/08/2017 ROOM: 413 SUBJECTIVE: The patient is currently lying in bed. The patient stated that he is extremely nervous and cannot relax. The patient states that he is terrified of the thought of surgery. The patient does have supportive family present at the bedside, active in the patient's care. I did screen the patient for alcohol or substance use, which he does candidly deny. The patient has had no reported episodes of vomiting nor diarrhea, still has some diffuse pain, and the patient does not voice any other concerns at this time. REVIEW OF SYSTEMS: Rest of review of systems negative. MEDICATIONS: Medications have been reviewed. OBJECTIVE: GENERAL: The patient is a 56-year-old -Italian male who is awake, alert. He is oriented to person, place, time, and situation. He is verbal, conversational, does not appear to be in any acute distress. VITAL SIGNS: Temperature is 98.2, pulse 60, respirations 12, blood pressure is 154/77, oxygen saturation is 98% on room air. SKIN: Warm and dry. No rash. Not diaphoretic. HEENT: Pupils equal, round, and reactive to light and accommodation. Conjunctiva is pink. No JVP. CARDIOVASCULAR SYSTEM: Heart is regular. There is no murmur or rub. CHEST: Clear, symmetrical, unlabored. ABDOMEN: Soft, nondistended. Diffusely tender. BACK: No CVA tenderness or sacral edema. EXTREMITIES: No clubbing, cyanosis, edema. PSYCHIATRIC: Pleasant, but anxious affect, pleasant mood. DIAGNOSTICS: Lab values are as follows: Hematology obtained on 03/08/2017: WBCs are 15.4, hemoglobin is 13.2, hematocrit is 39.9, platelet count is 185,000. Chemistry obtained on 03/08/2017: Sodium is 139, potassium 4.3, chloride is 104, carbon dioxide 25, BUN 12, creatinine is 0.75, glucose 108. Calcium is 8.7, bilirubin is 1.3. AST 46, ALT is 143, Alk phos 199, total protein 6.2, albumin 3.2. Lipase is 456. IMPRESSION AND PLAN: 1. ACUTE CHOLECYSTITIS. The patient is being covered with Zosyn and will go to the OR today for cholecystectomy. Do appreciate Surgery's management of this. 2. ACUTE BILIARY PANCREATITIS WITHOUT EVIDENCE OF NECROSIS. The patient most likely had a gallstone pancreatitis, which appears to be resolving. His lipase has trended down. Will follow. 3. DIABETES MELLITUS TYPE 2. Will continue sliding scale coverage for now and will be able to replace the patient on metformin once he is able to take p.o. 4. TOBACCO DEPENDENCY, CONTINUOUS. Spent 3 minutes discussing smoking cessation education. The patient declines any pharmacological intervention at this time. DISPOSITION: The patient is a FULL CODE. Pending patient's symptomatology and diagnostic findings, will re-evaluate in the a.m. Time spent on this visit, including assessment, plan, physical examination, patient education, and family meeting is 35 minutes. DICTATING PHYSICIAN: JOHNATHAN PATEL NP [id number] PHY#: [id number] ID: [id number] JOB#: [id number] ACCT: [id number] cc: >
[2017-03-08] MEDS ORDERED: HYDROMORPHONE HCL INJ/PF 2 MG/ML AMPULE ONE ×3 (11:47→14:47)
[2017-03-08] MEDS ORDERED: MIDAZOLAM 2 MG/2 ML INJ ONE (11:48)
[2017-03-08] MEDS ORDERED: FENTANYL CITRATE INJ/PF 100 MCG/2 ML AMPUL ONE ×4 (11:48→16:33)
[2017-03-08] MEDS ORDERED: EPHEDRINE SULFATE INJ 50 MG/1 ML AMPULE ONE (11:48)
[2017-03-08] MEDS ORDERED: PROPOFOL INJ 200 MG/20 ML VIAL IV ONE (11:48)
[2017-03-08] MEDS ORDERED: OXYCODONE-ACETAMINOPHEN 5-325 MG TABLET PO PRN ×2 (13:29)
[2017-03-08] MEDS ORDERED: DIPHENHYDRAMINE HCL 50 MG/ML VIAL IV PRN (13:29)
[2017-03-08] MEDS ORDERED: PROMETHAZINE HCL INJ 25 MG/1 ML VIAL IV PRN ×2 (13:29)
[2017-03-08] MEDS ORDERED: MEPERIDINE HCL/PF INJ 25 MG/1 ML DISP.SYRIN IV PRN (13:29)
[2017-03-08] MEDS ORDERED: FENTANYL CITRATE INJ/PF 100 MCG/2 ML AMPUL IV PRN ×2 (13:29)
[2017-03-08] MEDS: FENTANYL CITRATE INJ/PF 100 MCG/2 ML AMPUL IV PRN ×2 (16:35→16:47)
[2017-03-08] MEDS ORDERED: MORPHINE SULFATE 10 MG/ML INJ ONE (17:19)
[2017-03-08 17:23] LABS: HEMATOCRIT 42.9 % (37.9-51.0); HEMOGLOBIN 14.3 g/dL (13.5-17.0); MEAN CORPUSCULAR HEMOGLOBIN 27.8 pg (27.0-33.4); MEAN CORPUSCULAR HGB CONC 33.3 g/dL (32.0-36.0); MEAN CORPUSCULAR VOLUME 83 fl (80-97); RED BLOOD COUNT 5.15 10^6/uL (4.35-5.55); WHITE BLOOD COUNT 18.8 10^3/uL (4.0-10.5)
[2017-03-08 17:32] LABS: ALANINE AMINOTRANSFERASE 152 U/L (21-72); ALBUMIN 3.8 g/dL (3.5-5.0); ALKALINE PHOSPHATASE 220 U/L (38-126); ANION GAP 13 (5-19); ASPARTATE AMINO TRANSFERASE 83 U/L (17-59); BILIRUBIN,DIRECT 1.1 mg/dL (0.0-0.4); BILIRUBIN,TOTAL 1.3 mg/dL (0.2-1.3); BLOOD UREA NITROGEN 14 mg/dL (7-20); CALCIUM 8.9 mg/dL (8.4-10.2); CARBON DIOXIDE 20 mmol/L (22-30); CHLORIDE 105 mmol/L (98-107); CREATININE RESULT 1.08 mg/dL (0.52-1.25); GLUCOSE 183 mg/dL (75-110); LIPASE 241.1 U/L (23-300); POTASSIUM 4.9 mmol/L (3.6-5.0); SODIUM 138.1 mmol/L (137-145); TOTAL PROTEIN 7.1 g/dL (6.3-8.2)
--- NOTE | 2017-03-08 18:10 | RADIOLOGY REPORT (SQ) ---
EXAM DESCRIPTION: KUB/ABDOMEN (SINGLE VIEW) COMPLETED DATE/TIME: 03/08/2017 5:59 pm REASON FOR STUDY: CHECK NG PLACEMENT COMPARISON: None. NUMBER OF VIEWS: One view. TECHNIQUE: Supine radiographic image of the abdomen acquired. LIMITATIONS: None. FINDINGS: BOWEL GAS PATTERN: Large amount of large bowel gas. Considerable stool in the large bowel . The overall appearance is not of obstruction. CALCIFICATIONS: No suspicious calcifications. SOFT TISSUES: No gross mass or suggestion of organomegaly. HARDWARE: NG tube extends to the stomach and the tip is near the fundus of the stomach. BONES: No acute fracture. No worrisome bone lesions. OTHER: No other significant finding. IMPRESSION: NG tube placement as described. Findings as described. TECHNICAL DOCUMENTATION: JOB ID: [id number] [employer]- All Rights Reserved
[2017-03-08] MEDS: HYDROMORPHONE HCL INJ/PF 2 MG/ML AMPULE IV PRN (20:11)
[2017-03-09] MEDS: HYDROMORPHONE HCL INJ/PF 2 MG/ML AMPULE IV PRN ×2 (00:15→03:09)
[2017-03-09] MEDS: PIPERACILLIN SODIUM/TAZOBACTAM 3.375 GM in NORMAL SALINE 100 ML IV SCH ×5 (01:02→23:44)
[2017-03-09] MEDS: NORMAL SALINE 1000 ML 1,000 ML IV PRN ×3 (03:11→12:30)
[2017-03-09 05:23] LABS: HEMATOCRIT 41.7 % (37.9-51.0); HEMOGLOBIN 13.8 g/dL (13.5-17.0); HGB HCT DIFFERENCE -0.3; MEAN CORPUSCULAR HEMOGLOBIN 27.5 pg (27.0-33.4); MEAN CORPUSCULAR HGB CONC 33.1 g/dL (32.0-36.0); MEAN CORPUSCULAR VOLUME 83 fl (80-97); RED BLOOD COUNT 5.01 10^6/uL (4.35-5.55); RED CELL DISTRIBUTION WIDTH 14.3 % (11.5-14.0); WHITE BLOOD COUNT 17.5 10^3/uL (4.0-10.5)
[2017-03-09 05:47] LABS: ALANINE AMINOTRANSFERASE 142 U/L (21-72); ALBUMIN 3.6 g/dL (3.5-5.0); ALKALINE PHOSPHATASE 186 U/L (38-126); ANION GAP 13 (5-19); ASPARTATE AMINO TRANSFERASE 66 U/L (17-59); BILIRUBIN,DIRECT 0.9 mg/dL (0.0-0.4); BILIRUBIN,TOTAL 1.2 mg/dL (0.2-1.3); BLOOD UREA NITROGEN 15 mg/dL (7-20); CARBON DIOXIDE 22 mmol/L (22-30); CHLORIDE 107 mmol/L (98-107); CREATININE RESULT 1.09 mg/dL (0.52-1.25); GLUCOSE 119 mg/dL (75-110); LIPASE 91.4 U/L (23-300); POTASSIUM 4.8 mmol/L (3.6-5.0); SODIUM 142.1 mmol/L (137-145); TOTAL PROTEIN 6.9 g/dL (6.3-8.2)
[2017-03-09] MEDS ORDERED: NORMAL SALINE 1000 ML 1,000 ML IV PRN (09:07)
--- NOTE | 2017-03-09 09:52 | PROGRESS NOTE E ---
Progress Note NAME: DELIO BAEZ : 1960 AGE: 56Y DATE: 03/09/2017 ROOM: 320 SUBJECTIVE: The patient is currently lying in bed. He states that he does feel better today than yesterday actually prior to his surgery. The patient denies any nausea, vomiting, or diarrhea. No shortness of breath, dizziness, or chest pain. The patient admits to abdominal pain but relates it to surgical pain. The patient has been afebrile. He has significantly concentrated urine, and the patient does not voice any other concerns at this time. REVIEW OF SYSTEMS: Rest of the review of systems negative. MEDICATIONS: Have been reviewed. OBJECTIVE: GENERAL: The patient is a 56-year-old -Thai male who is awake, alert, and oriented to person, place, time, and situation. He is verbal, conversational, and does not appear to be in acute distress. VITAL SIGNS: Temperature 97.6, pulse 69, respirations 18, blood pressure 132/80, oxygen saturation is 99% on 2 L nasal cannula. SKIN: Warm and dry. No rash. He is not diaphoretic. HEENT: Pupils are reactive. NG tube is in place right. The patient has no JVP. Mucous membranes are moist. CARDIOVASCULAR: Heart is regular. There is no murmur or rub. CHEST: Clear, symmetrical, unlabored. ABDOMEN: Postsurgical. CLAUDIA drain in place. EXTREMITIES: No clubbing, cyanosis, or edema. GENITOURINARY: Abdalla is draining dark urine. DIAGNOSTICS: Lab values are as follow: Hematology obtained on 03/09/2017: WBCs are 17.5, hemoglobin is 13.8, hematocrit is 41.7, platelet count is 208,000. Chemistry obtained on 03/09/2017: Sodium is 142, potassium 4.8, chloride is 107, carbon dioxide 22, BUN 15, creatinine is 1.09, glucose 119, calcium is 9.0, bilirubin is 1.2, AST 66, ALT is 142, alk phos 186, total protein is 6.9, albumin 3.6, lipase is 91.4. IMPRESSION AND PLAN: 1. ACUTE CHOLECYSTITIS. The patient is postop day #1. The patient is being covered with Zosyn. Do appreciate Surgery's management of this. He does have a drain in place. 2. ACUTE BILIARY PANCREATITIS WITHOUT EVIDENCE OF NECROSIS. Most likely gallstone pancreatitis which appears to have resolved. 3. DIABETES MELLITUS TYPE 2. Will continue the patient's sliding scale coverage once the patient is taking p.o. Will start him on metformin. 4. TOBACCO DEPENDENCY. Will continue p.r.n. nicotine patch. DISPOSITION: Will give the patient a liter bolus. Pending patient's symptomatology and diagnostic findings, will reevaluate in the a.m. Time spent on this followup including assessment, plan, physical examination, patient education, and review of records is 25 minutes. DICTATING PHYSICIAN: JOHNATHAN PATEL NP [id number] PHY#: [id number] ID: [id number] JOB#: [id number] ACCT: [id number] cc: > MTDD
[2017-03-09] MEDS ORDERED: PHENOL/SODIUM PHENOLATE 100 SPRAY/177 ML BOTTLE PO PRN (14:56)
[2017-03-09] MEDS ORDERED: ONDANSETRON HCL INJ/PF 4 MG/2 ML SDV IV PRN (15:30)
--- NOTE | 2017-03-09 21:31 | PDOC PROGRESS REPORT ---
Subjective Progress Note for:: 03/09/17 Subjective:: abdominal pain/incisional Reason For Visit: ACUTE CHOLECYSTITIS Physical Exam Vital Signs: Temp Pulse Resp BP Pulse Ox 98.8 F 77 20 158/71 H 92 03/09/17 19:12 03/09/17 19:12 03/09/17 19:12 03/09/17 19:12 03/09/17 19:12 Intake & Output 03/08/17 03/09/17 03/10/17 06:59 06:59 06:59 Intake Total 0 82062 5165 Output Total 9875 1115 Balance 0 1325 4050 Weight 111.7 kg 115.3 kg GI/Abdominal exam: PRESENT: soft - With tenderness along the incision sites. An NG tube is intact with small amount of drainage. Results Laboratory Results: 03/09/17 04:41 03/09/17 04:41 03/09/17 03/09/17 04:41 04:41 WBC 17.5 H RBC 5.01 Hgb 13.8 Hct 41.7 MCV 83 MCH 27.5 MCHC 33.1 RDW 14.3 H Plt Count 208 Sodium 142.1 Potassium 4.8 Chloride 107 Carbon Dioxide 22 Anion Gap 13 BUN 15 Creatinine 1.09 Est GFR ( Amer) > 60 Est GFR (Non-Af Amer) > 60 Glucose 119 H Calcium 9.0 Total Bilirubin 1.2 AST 66 H ALT 142 H Alkaline Phosphatase 186 H Total Protein 6.9 Albumin 3.6 Lipase 91.4 Impressions: KUB X-Ray 03/08/17 00:00 IMPRESSION: NG tube placement as described. Findings as described. Assessment & Plan - Time Time Spent with patient: 15-24 minutes - Inpatient Certification Medical Necessity: Need For IV Fluids, Need for IV Antibiotics - Plan Summary Plan Summary: #1 discontinue the Abdalla today but leave the NG tube for today. 2. Continue IV antibiotics 3. Appreciate medical consultation. 4. Start patient on Lovenox 5. Continue monitor CBC and LFTs. Lipase has normalized now.
[2017-03-10] MEDS: HYDROMORPHONE HCL INJ/PF 2 MG/ML AMPULE IV PRN (01:53)
--- NOTE | 2017-03-10 01:53 | OPERATIVE REPORT E ---
Operative Report NAME: DELIO BAEZ : 1960 AGE: 56Y DATE OF SURGERY: 03/08/2017 ROOM: 320 PREOPERATIVE DIAGNOSIS: 1. ACUTE CALCULOUS CHOLECYSTITIS. 2. ELEVATED LFTS. 3. GALLSTONE PANCREATITIS. POSTOPERATIVE DIAGNOSIS: 1. ACUTE CALCULOUS CHOLECYSTITIS. 2. DECREASING LFTS. 3. RESOLVING GALLSTONE PANCREATITIS. OPERATION: Laparoscopic cholecystectomy. SURGEON: ANKIT FORREST M.D. ANESTHESIA: General. INDICATION: This is a 56-year-old male with about a week duration of abdominal pains. He was initially seen in the emergency room on 03/04/17 with LFTs elevated and abdominal pains. The patient went home the same day and against medical advice, only to come back on 03/07/17 for persistent abdominal pains. At this time his LFTs were coming down as well as the lipase to around 700. On the day of surgery, 03/08/17, lipase is close to normal, and LFTs also close to normal. However, patient still with considerable epigastric and right upper quadrant pains and tenderness. He had an ultrasound on the first time he was in the emergency room, and it showed gallstones, but bile ducts were not dilated. He had thickened gallbladder wall, indicating acute cholecystitis. DESCRIPTION OF PROCEDURE: After general anesthesia, the patient was placed in the supine position and the abdomen prepped and draped in the usual sterile fashion. Appropriate timeout was called. Next, an infraumbilical elliptical incision was made and the fascia identified and divided between 2 Pearl clamps. Fascial defect was then punctured with a hemostat, and finger dissection through the abdominal cavity was done. No evidence of adhesions around the puncture site. Next, a Nickolas trocar was inserted and CO2 insufflated to a pressure of 15 mmHg. The camera was inserted through the Nickolas trocar, and 3 other trocars were placed, a 12-mm in the right xiphoid and two 5-mm in the right upper quadrant. The gallbladder was then identified and noted to be markedly tense with a lot of adhesions around it. It was then decompressed with a long needle. Some of the bile was sent for culture. The tip of the gallbladder was then grasped, and blunt dissection as well as with the use of Harmonic javier was done of the adhesions around the gallbladder. This was mostly thickened omentum. The dissection was carried out gently and gingerly. We were finally able to get into the area of the cystic duct, which was noted to be markedly thickened and quite short. Therefore, a cholangiogram was not performed. The cystic duct was then clipped with hemoclips; about 3 were placed, and another one close to the gallbladder, and subsequently divided between the clips. The gallbladder was then dissected bluntly and with the use of Harmonic javier. While dissecting, part of the gallbladder wall was open, and at least a couple of small stones were extruded out, and these were subsequently retrieved with a gallstone forceps. There was a lot of sludge noted. The adhesions are so dense that it is quite difficult to definitely identify the plane in the gallbladder wall. The gallbladder was then eventually completely removed. The cystic artery was cauterized and divided with Harmonic javier. *------* what appears to be the cystic artery. The gallbladder was removed in an Endobag through the umbilical port. Next, the gallbladder bed was inspected, and it was noted to have some oozing, and this was controlled with cautery using the spatula and right angle. No active bleeding noted following this. The liver bed and around the area close to the liver bed was then copiously irrigated. I had to put another trocar on the patient's left side, then placing a fan retractor to help with better visualization of the cystic duct during the procedure. Also, some of the bowels were somewhat dilated because of ileus. Following this, 2 pieces of Surgicel were placed on the liver bed for better hemostasis. A Irvin-Sanchez drain was then placed around the area of the dissection and the liver bed and brought out through one of the trocar sites in the right upper quadrant. The drain was then anchored to the skin with 3-0 silk. The abdominal cavity was inspected at the completion of the procedure and no other abnormalities noted, other than some of the small bowel noted to be somewhat dilated. All the trocars were removed and CO2 allowed to come out of the trocar sites. A uymbza-yv-xvfrm suture using 0-Vicryl was used to close the infraumbilical fascial defect. All the skin incisions were then closed with running subcuticular 4-0 Vicryl undyed. Dermabond dressings were used to dress the incisions. The patient tolerated the procedure quite well. Estimated blood loss about 40 mL. Needle, instrument and sponge counts were all correct. The patient was brought to the recovery room in guarded condition. DICTATING PHYSICIAN: ANKIT FORREST M.D. [id number] PHY#: [id number] ID: [id number] JOB#: [id number] ACCT: [id number] cc:ANKIT FORREST M.D. >
[2017-03-10 05:27] LABS: HEMATOCRIT 39.6 % (37.9-51.0); HEMOGLOBIN 12.9 g/dL (13.5-17.0); HGB HCT DIFFERENCE -0.9; MEAN CORPUSCULAR HEMOGLOBIN 27.4 pg (27.0-33.4); MEAN CORPUSCULAR HGB CONC 32.7 g/dL (32.0-36.0); MEAN CORPUSCULAR VOLUME 84 fl (80-97); RED BLOOD COUNT 4.73 10^6/uL (4.35-5.55); RED CELL DISTRIBUTION WIDTH 14.4 % (11.5-14.0); WHITE BLOOD COUNT 16.7 10^3/uL (4.0-10.5)
[2017-03-10 05:54] LABS: ANION GAP 11 (5-19); BLOOD UREA NITROGEN 16 mg/dL (7-20); CALCIUM 9.1 mg/dL (8.4-10.2); CARBON DIOXIDE 24 mmol/L (22-30); CHLORIDE 111 mmol/L (98-107); CREATININE RESULT 0.98 mg/dL (0.52-1.25); GLUCOSE 131 mg/dL (75-110); POTASSIUM 4.4 mmol/L (3.6-5.0); SODIUM 146.4 mmol/L (137-145)
[2017-03-10] MEDS: PIPERACILLIN SODIUM/TAZOBACTAM 3.375 GM in NORMAL SALINE 100 ML IV SCH ×3 (06:45→17:43)
--- NOTE | 2017-03-10 13:23 | PDOC PROGRESS REPORT ---
Subjective Progress Note for:: 03/10/17 Subjective:: Patient is without complaints, and has passed gas. Reason For Visit: ACUTE CHOLECYSTITIS Physical Exam Vital Signs: Temp Pulse Resp BP Pulse Ox 98.5 F 76 20 199/96 H 95 03/10/17 03:51 03/10/17 03:51 03/10/17 03:51 03/10/17 03:51 03/10/17 03:51 Intake & Output 03/09/17 03/10/17 03/11/17 06:59 06:59 06:59 Intake Total 57032 6695 Output Total 9875 1965 Balance 1325 4730 Weight 115.3 kg 114.8 kg General appearance: PRESENT: no acute distress Respiratory exam: PRESENT: clear to auscultation tico Cardiovascular exam: PRESENT: RRR GI/Abdominal exam: PRESENT: normal bowel sounds, soft. ABSENT: distended, guarding, tenderness Results Laboratory Results: 03/10/17 04:44 03/10/17 04:44 03/10/17 03/10/17 04:44 04:44 WBC 16.7 H RBC 4.73 Hgb 12.9 L Hct 39.6 MCV 84 MCH 27.4 MCHC 32.7 RDW 14.4 H Plt Count 183 Sodium 146.4 H Potassium 4.4 Chloride 111 H Carbon Dioxide 24 Anion Gap 11 BUN 16 Creatinine 0.98 Est GFR ( Amer) > 60 Est GFR (Non-Af Amer) > 60 Glucose 131 H Calcium 9.1 Magnesium 2.0 Impressions: KUB X-Ray 03/08/17 00:00 IMPRESSION: NG tube placement as described. Findings as described. Assessment & Plan - Diagnosis (1) Acute cholecystitis Is this a current diagnosis for this admission?: Yes - Plan Summary Plan Summary: Nasogastric tube has been discontinued, and clear liquid diet will be started. If tolerated well, will advance to regular diet immediately. Discharge planning is for a.m.
--- NOTE | 2017-03-10 16:43 | PDOC PROGRESS REPORT ---
Subjective Subjective:: Patient seen sitting up in the chair. Denies any nausea vomiting. Complains of belching. NG tube clamp. Wants to know if he can get the tube out Reason For Visit: ACUTE CHOLECYSTITIS with abdominal pain nausea and vomiting Physical Exam Vital Signs: Temp Pulse Resp BP Pulse Ox 98.5 F 76 20 199/96 H 95 03/10/17 03:51 03/10/17 03:51 03/10/17 03:51 03/10/17 03:51 03/10/17 03:51 Intake & Output 03/09/17 03/10/17 03/11/17 06:59 06:59 06:59 Intake Total 76958 6695 Output Total 9875 1965 Balance 1325 4730 Weight 115.3 kg 114.8 kg General appearance: PRESENT: no acute distress Ear exam: PRESENT: normal external ear exam Respiratory exam: PRESENT: clear to auscultation tico. ABSENT: rales, rhonchi, wheezes Cardiovascular exam: PRESENT: RRR. ABSENT: diastolic murmur, rubs, systolic murmur Pulses: PRESENT: normal dorsalis pedis pul Vascular exam: PRESENT: normal capillary refill GI/Abdominal exam: PRESENT: diminished bowel sounds, soft, tenderness Rectal exam: PRESENT: deferred Musculoskeletal exam: PRESENT: ambulatory Neurological exam: PRESENT: alert, awake, oriented to person, oriented to place , oriented to time, oriented to situation, CN II-XII grossly intact. ABSENT: motor sensory deficit Psychiatric exam: PRESENT: appropriate affect, normal mood. ABSENT: homicidal ideation, suicidal ideation Skin exam: PRESENT: abrasion Results Laboratory Results: 03/10/17 04:44 03/10/17 04:44 03/10/17 03/10/17 04:44 04:44 WBC 16.7 H RBC 4.73 Hgb 12.9 L Hct 39.6 MCV 84 MCH 27.4 MCHC 32.7 RDW 14.4 H Plt Count 183 Sodium 146.4 H Potassium 4.4 Chloride 111 H Carbon Dioxide 24 Anion Gap 11 BUN 16 Creatinine 0.98 Est GFR ( Amer) > 60 Est GFR (Non-Af Amer) > 60 Glucose 131 H Calcium 9.1 Magnesium 2.0 Impressions: KUB X-Ray 03/08/17 00:00 IMPRESSION: NG tube placement as described. Findings as described. Assessment & Plan - Diagnosis (1) Abdominal pain Qualifiers: Abdominal location: generalized Qualified Code(s): R10.84 - Generalized abdominal pain Is this a current diagnosis for this admission?: Yes Plan: No Nausea and vomiting wanting to take the tube out. Some bowel sounds. Continue to have some tenderness. (2) Diabetes mellitus Qualifiers: Diabetes mellitus type: type 2 Diabetes mellitus complication status: without complication Diabetes mellitus fpc insulin use: without termite technician use Qualified Code(s): E11.9 - Type 2 diabetes mellitus without complications Is this a current diagnosis for this admission?: Yes (3) Obesity (BMI 30.0-34.9) Is this a current diagnosis for this admission?: Yes (4) Tobacco abuse Is this a current diagnosis for this admission?: Yes (5) Acute cholecystitis Is this a current diagnosis for this admission?: Yes (6) Acute pancreatitis Qualifiers: Pancreatitis type: biliary Acute pancreatitis complication: unspecified Qualified Code(s): K85.10 - Biliary acute pancreatitis without necrosis or infection Is this a current diagnosis for this admission?: Yes Plan: Consider advancing diet as tolerated per surgery. Abdominal pain seems to be improving some.
[2017-03-10] MEDS: NORMAL SALINE 1000 ML 1,000 ML IV PRN (17:44)
[2017-03-11] MEDS: PIPERACILLIN SODIUM/TAZOBACTAM 3.375 GM in NORMAL SALINE 100 ML IV SCH ×4 (05:54→11:45)
[2017-03-11] MEDS ORDERED: FUROSEMIDE 20 MG TABLET PO ONE (10:26)
[2017-03-11 13:13] VITALS: BP 154/77
--- NOTE | 2017-03-11 17:08 | DISCHARGE SUMMARY E ---
Discharge Summary NAME: DELIO BAEZ : 1960 AGE: 56Y ADMITTED: 03/08/2017 DISCHARGED: 03/11/2017 DISCHARGE DIAGNOSES: Status post laparoscopic cholecystectomy for cholelithiasis and acute cholecystitis with gallstones pancreatitis. REASON FOR ADMISSION: This 56-year-old male presented to the hospital on 03/08/2017 with epigastric right upper quadrant pain for 6 days after having been seen in the ER 2 days prior for acute cholecystitis. Ultrasound showed sludged, thickened gallbladder wall with bilirubin up to 3 and lipase at 5700. HOSPITAL COURSE: The patient was admitted to the hospital and was taken to the OR on 03/09/2017 where he underwent a laparoscopic cholecystectomy. The patient's postop course uneventful. He was started on a clear liquid diet on postop day #1 and advanced to a regular diet on postop day #2. At this time the patient is afebrile, vital signs are stable. His abdomen is soft, bowel sounds are present. He has tolerated a regular diet and is passing gas. The patient's CLAUDIA was removed and there was minimal drainage and the patient is scheduled to return to [facility] in 7-10 days for follow up. DICTATING PHYSICIAN: ZAIDA HUNG M.D. [id number] PHY#: [id number] ID: [id number] JOB#: [id number] ACCT: [id number] cc:ZAIDA HUNG M.D. >
--- NOTE | 2017-03-11 17:30 | PDOC PROGRESS REPORT ---
Subjective Progress Note for:: 03/11/17 Subjective:: Patient seen and examined. In bed tolerating clear liquid diet. Did have some elevated blood pressure starting him on some p.o. Lasix patient's been urinating well. Suspect he had a little bit of fluid volume overload causing his blood pressure to be higher normal and stop his IV fluids. Reason For Visit: ACUTE CHOLECYSTITIS Physical Exam Vital Signs: Temp Pulse Resp BP Pulse Ox 98.5 F 75 16 154/77 H 97 03/11/17 13:10 03/11/17 13:10 03/11/17 13:10 03/11/17 13:10 03/11/17 13:10 Intake & Output 03/10/17 03/11/17 03/12/17 06:59 06:59 06:59 Intake Total 6695 1745 600 Output Total 1965 501 50 Balance 4730 1244 550 Weight 114.8 kg 111.2 kg General appearance: PRESENT: no acute distress, well-developed, well-nourished Head exam: PRESENT: atraumatic, normocephalic Eye exam: PRESENT: conjunctiva pink, EOMI, PERRLA. ABSENT: scleral icterus Ear exam: PRESENT: normal external ear exam Mouth exam: PRESENT: moist, tongue midline Neck exam: ABSENT: carotid bruit, JVD, lymphadenopathy, thyromegaly Respiratory exam: PRESENT: clear to auscultation tico. ABSENT: rales, rhonchi, wheezes Cardiovascular exam: PRESENT: RRR. ABSENT: diastolic murmur, rubs, systolic murmur Pulses: PRESENT: normal dorsalis pedis pul Vascular exam: PRESENT: normal capillary refill GI/Abdominal exam: PRESENT: normal bowel sounds, soft, tenderness. ABSENT: distended, guarding, mass, organolmegaly, rebound Rectal exam: PRESENT: deferred Extremities exam: PRESENT: full ROM. ABSENT: calf tenderness, clubbing, pedal edema Neurological exam: PRESENT: alert, awake, oriented to person, oriented to place , oriented to time, oriented to situation, CN II-XII grossly intact. ABSENT: motor sensory deficit Psychiatric exam: PRESENT: appropriate affect, normal mood. ABSENT: homicidal ideation, suicidal ideation Skin exam: PRESENT: dry, intact, warm. ABSENT: cyanosis, rash Results Laboratory Results: 03/10/17 04:44 03/10/17 04:44 Impressions: KUB X-Ray 03/08/17 00:00 IMPRESSION: NG tube placement as described. Findings as described. Assessment & Plan - Diagnosis (1) Abdominal pain Qualifiers: Abdominal location: generalized Qualified Code(s): R10.84 - Generalized abdominal pain Is this a current diagnosis for this admission?: Yes Plan: No Nausea and vomiting wanting to take the tube out. Some bowel sounds. Continue to have some tenderness. (2) Diabetes mellitus Qualifiers: Diabetes mellitus type: type 2 Diabetes mellitus complication status: without complication Diabetes mellitus termination clerk insulin use: without termination clerk use Qualified Code(s): E11.9 - Type 2 diabetes mellitus without complications Is this a current diagnosis for this admission?: Yes (3) Obesity (BMI 30.0-34.9) Is this a current diagnosis for this admission?: Yes Plan: Lifestyle modification weight loss to encourage (4) Tobacco abuse Is this a current diagnosis for this admission?: Yes (5) Acute cholecystitis Is this a current diagnosis for this admission?: Yes (6) Acute pancreatitis Qualifiers: Pancreatitis type: biliary Acute pancreatitis complication: unspecified Qualified Code(s): K85.10 - Biliary acute pancreatitis without necrosis or infection Is this a current diagnosis for this admission?: Yes Plan: Consider advancing diet as tolerated per surgery. Abdominal pain seems to be improving some. - Plan Summary Plan Summary: Monitor vital signs throughout the night. Surgery planning to discharge in a.m. if stable
== END 2017-03-11 13:32 | disposition home or self-care (01) | DRG 418 ==
LOC: ER 22:49 → EH 03-08 01:30 → 4N 03-08 02:45 → 3W 03-08 19:21
PROVIDERS: ADMIT Surgery; ATTEND Surgery
PROC: 0FT44ZZ Resection of Gallbladder, Percutaneous Endoscopic Approach (ICD-10-PCS; principal; 2017-03-08 12:30)
DX: K85.10 Biliary acute pancreatitis without necrosis or infection (principal); K80.00 Calculus of gallbladder with acute cholecystitis without obstruction; E11.9 Type 2 diabetes mellitus without complications; F17.210 Nicotine dependence, cigarettes, uncomplicated; E66.9 Obesity, unspecified; Z79.84 Long term (current) use of oral hypoglycemic drugs; Z68.31 Body mass index [BMI] 31.0-31.9, adult
CPT/HCPCS: 36415; 74000; 790; 80048; 80053; 80076; 82962; 83036; 83690; 83735; 85025; 85027; 88304; 93005; 93010; 96365; 96375; 99284; J0330; J1100; J1170; J2060; J2250; J2270; J2405; J2543; J2704; J3010; J3490; J7030

== ENCOUNTER 2018-09-03 11:11 | Emergency (ER) | payer OTHER ==
[2018-09-03] MEDS ORDERED: KETOROLAC TROMETHAMINE 60 MG/2 ML SDV IM ONE (11:36)
--- NOTE | 2018-09-03 11:39 | ER Document Report ---
ED Medical Screen (RME) - General Chief Complaint: Flank Pain Stated Complaint: FLANK PAIN Time Seen by Provider: 09/03/18 11:32 Primary Care Provider: RIYA CHACKO MD [Primary Care Provider] - Follow up as needed TRAVEL OUTSIDE OF THE [place] IN LAST 30 DAYS: No - HPI Notes: 09/03/18 11:37 Patient is a 57-year-old male with a history of type 2 diabetes who presents complaining of pain to his lateral lower back x3 days without precipitating event. Patient states that movement does make his pain worse. Patient states the pain wants to wrap around towards the front. Patient states that he has not been on his metformin in a while and has not been checking his sugars. Patient has run out of his prescription has not renewed it. He is otherwise able to eat and drink without difficulty. He is urinating normally and having normal bowel movements. Denies history of spinal abscess. Denies any headache, fever, URI, sore throat, chest pain, palpitations, syncope, cough, shortness of breath, wheeze, dyspnea, abdominal pain, nausea/vomiting/diarrhea, urinary retention, dysuria, hematuria, loss of control of bowel or bladder, numbness/tingling, saddle anesthesia, muscle paralysis/weakness, or rash. I have treated and performed a rapid initial assessment of this patient. A comprehensive ED assessment and evaluation of the patient, analysis of test results and completion of medical decision making process will be conducted by additional ED providers. PHYSICAL EXAMINATION: GENERAL: Well-appearing, well-nourished and in no acute distress. A&Ox4. Answers questions appropriately. LUNGS: Breath sounds clear to auscultation bilaterally and equal. No wheezes rales or rhonchi. HEART: Regular rate and rhythm without murmurs, rubs, gallops. Abd: no CVA tenderness. Back: FROM. Strength 5+/5. No vertebral point tenderness or immediate tenderness to the L-paraspinal mm. No SI jt tenderness. No foot drop. SLR negative. Extremities: No cyanosis, clubbing, or edema b/l. NEUROLOGICAL: Normal speech, normal gait. PSYCH: Normal mood, normal affect. - Related Data Allergies/Adverse Reactions: No Known Allergies Allergy (Verified 09/03/18 11:11) Past Medical History - Social History Chew tobacco use (# tins/day): No Frequency of alcohol use: None Drug Abuse: None Endocrine Medical History: Reports: Hx Diabetes Mellitus Type 2 Renal/ Medical History: Denies: Hx Peritoneal Dialysis Past Surgical History: Reports: Hx Cholecystectomy - Immunizations History of Influenza Vaccine for 01/2017 - 06/2017 Season: No Physical Exam - Vital signs Vitals: Temp Pulse Resp BP Pulse Ox 98.3 F 73 20 145/74 H 97 09/03/18 11:20 09/03/18 11:20 09/03/18 11:20 09/03/18 11:20 09/03/18 11:20 Course - Vital Signs Vital signs: Temp Pulse Resp BP Pulse Ox 98.3 F 73 20 145/74 H 97 09/03/18 11:20 09/03/18 11:20 09/03/18 11:20 09/03/18 11:20 09/03/18 11:20 Doctor's Discharge - Discharge Referrals: RIYA CHACKO MD [Primary Care Provider] - Follow up as needed
[2018-09-03 12:12] LABS: APPEARANCE,URINE CLEAR; BILIRUBIN,URINE NEGATIVE (NEGATIVE); COLOR,URINE YELLOW; GLUCOSE, URINE 150 mg/dL (NEGATIVE); KETONES,URINE NEGATIVE (NEGATIVE); LEUKOCYTE ESTERASE,URINE NEGATIVE (NEGATIVE); NITRITE,URINE NEGATIVE (NEGATIVE); PROTEIN,URINE NEGATIVE (NEGATIVE); URINE SPECIFIC GRAVITY 1.025
--- NOTE | 2018-09-03 12:49 | ER Document Report ---
HPI - HPI Patient complains to provider of: Back pain Time Seen by Provider: 09/03/18 11:32 Pain Level: 3 Context: RME provider note: Patient is a 57-year-old male with a history of type 2 diabetes who presents complaining of pain to his lateral lower back x3 days without precipitating event. Patient states that movement does make his pain worse. Patient states the pain wants to wrap around towards the front. Patient states that he has not been on his metformin in a while and has not been checking his sugars. Patient has run out of his prescription has not renewed it. He is otherwise able to eat and drink without difficulty. He is urinating normally and having normal bowel movements. Denies history of spinal abscess. Denies any headache, fever, URI, sore throat, chest pain, palpitations, syncope, cough, shortness of breath, w heeze, dyspnea, abdominal pain, nausea/vomiting/diarrhea, urinary retention, dysuria, hematuria, loss of control of bowel or bladder, numbness/tingling, saddle anesthesia, muscle paralysis/weakness, or rash. My HPI: Patient states while he is been in the emergency department he has been thinking of how he could have injured his back. Patient is admitting to Monday morning leaning backwards in the car and twisting in a weird way. States he then feels as though the lower back pain started. Patient continues to deny any urinary retention or loss of bowel or bladder. He denies any numbness or tingling in any extremity. Patient is Claus received Toradol in the emergency department and patient states overall his pain is a lot better. Patient has bilateral lower lumbar paraspinal pain. Patient states he has been without his metformin for couple of months now. States he thinks he takes 500 mg daily. - DERM Skin Color: Normal Past Medical History - General Information source: Patient - Social History Smoking Status: Current Every Day Smoker Chew tobacco use (# tins/day): No Frequency of alcohol use: None Drug Abuse: None Family History: DM Patient has suicidal ideation: No Patient has homicidal ideation: No Endocrine Medical History: Reports: Hx Diabetes Mellitus Type 2 Renal/ Medical History: Denies: Hx Peritoneal Dialysis Past Surgical History: Reports: Hx Cholecystectomy Vertical Provider Document - CONSTITUTIONAL Agree With Documented VS: Yes Notes: GENERAL: Alert, interacts well. No acute distress. HEAD: Normocephalic, atraumatic. EYES: Pupils equal, round, and reactive to light. Extraocular movements intact. ENT: Oral mucosa moist, tongue midline. NECK: Full range of motion. Supple. Trachea midline. LUNGS: Clear to auscultation bilaterally, no wheezes, rales, or rhonchi. No respiratory distress. HEART: Regular rate and rhythm. No murmur ABDOMEN: Soft, non-tender. Non-distended. Bowel sounds present in all 4 quadrants. EXTREMITIES: Moves all 4 extremities spontaneously. No edema, normal radial and dorsalis pedis pulses bilaterally. No cyanosis. 5 out of 5 strength all 4 extremities BACK: no cervical, thoracic, lumbar midline tenderness. No saddle anesthesia, normal distal neurovascular exam. Bilateral lower lumbar paraspinal tenderness upon palpation. No CVA tenderness noted bilaterally NEUROLOGICAL: Alert and oriented x3. Normal speech. cranial nerves II through XII grossly intact PSYCH: Normal affect, normal mood. SKIN: Warm, dry, normal turgor. No rashes or lesions noted. - INFECTION CONTROL TRAVEL OUTSIDE OF THE [place] IN LAST 30 DAYS: No Course - Re-evaluation Re-evalutation: 09/03/18 12:50 Laboratory 09/03/18 09/03/18 11:43 11:52 POC Glucose 184 H Urine Color YELLOW Urine Appearance CLEAR Urine pH 5.0 Ur Specific [place] 1.025 Urine Protein NEGATIVE Urine Glucose (UA) 150 H Urine Ketones NEGATIVE Urine Blood SMALL H Urine Nitrite NEGATIVE Urine Bilirubin NEGATIVE Urine Urobilinogen 4.0 H Ur Leukocyte Esterase NEGATIVE Urine WBC (Auto) 1 Urine RBC (Auto) 4 Squamous Epi Cells Auto <1 Urine Mucus (Auto) RARE Urine Ascorbic Acid NEGATIVE Patient sugar was noted to be 184, no ketones on his urine. Patient continues without urinary complaints. Discussed giving him a refill of his metformin but needs follow-up with primary care provider. Patient voices understanding states he does have insurance and will follow-up within the month. Patient stable for discharge. - Vital Signs Vital signs: Temp Pulse Resp BP Pulse Ox 98.3 F 73 20 145/74 H 97 09/03/18 11:20 09/03/18 11:20 09/03/18 11:20 09/03/18 11:20 09/03/18 11:20 - Laboratory Laboratory results interpreted by me: 09/03/18 09/03/18 11:43 11:52 POC Glucose 184 H Urine Glucose (UA) 150 H Urine Blood SMALL H Urine Urobilinogen 4.0 H Discharge - Discharge Clinical Impression: Lumbar back pain Diabetes mellitus Qualifiers: Diabetes mellitus type: type 2 Diabetes mellitus roasterman insulin use: without roasterman use Diabetes mellitus complication status: with unspecified complicati ons Qualified Code(s): E11.8 - Type 2 diabetes mellitus with unspecified complications Condition: Stable Disposition: HOME, SELF-CARE Instructions: Diabetes ([facility]), Low Back Pain ([facility]) Additional Instructions: You have been seen in the Emergency Department (ED) today for back pain. Your workup and exam have not shown any acute abnormalities and you are likely suffering from muscle strain or possible problems with your discs, but there is no treatment that will fix your symptoms at this time. Please take the naproxen that has been prescribed as directed. You should also purchase a local lidocaine cream such as "aspercreme with lidocaine" and use per bottle instructions to the affected area. Apply heat to the area as often as you are able. Continue to keep active and avoid prolonged periods of bed rest. Please follow up with your doctor as soon as possible regarding today's ED visit and your back pain. Return to the ED for worsening back pain, fever, weakness or numbness of either leg, or if you develop either (1) an inability to urinate or have bowel movements, or (2) loss of your ability to control your bathroom functions (if you start having "accidents"), or if you develop other new symptoms that concern you.concern you. Stretching Exercises for the Back The physician has recommended that you begin stretching exercises for your back. These are often used even while the back is painful. However, you should notify the physician if the activities seem to increase your pain. PELVIC TILT: Lie flat on your back with knees bent. Tighten your stomach and buttock muscles so it flattens your lower back against the floor. Hold 10 seconds. Repeat 10 times, twice daily. KNEE RAISE: Lying on the back with knees bent, raise one knee to your chest, then the other. Hold both knees against the chest 10 seconds, then lower one knee at a time. Repeat 10 times, twice daily. PARTIAL TRUNK RAISE: Lie face down, arms at your sides. Keeping your waist on the floor, use your arms raise your chest up. Support yourself on your elbows for 30 seconds. Repeat twice daily, increasing the time to two minutes as you recover. Prescriptions: Cyclobenzaprine HCl [Flexeril 10 mg Tablet] 10 mg PO TIDP PRN #15 tab PRN Reason: Metformin HCl 500 mg PO DAILY #30 tablet Referrals: RIYA CHACKO MD [Primary Care Provider] - Follow up as needed
[2018-09-03] MEDS ORDERED: CYCLOBENZAPRINE HCL 10 MG TABLET PO ONE (12:50)
[2018-09-03] MEDS ORDERED: LIDOCAINE 5% (700 MG) TRANSDERMAL ADH..PATCH TP ONE (12:50)
[2018-09-03 13:10] VITALS: BP 130/92
== END 2018-09-03 13:09 | disposition home or self-care (01) ==
LOC: ER 11:11
DX: M54.5 Low back pain (principal); E11.8 Type 2 diabetes mellitus with unspecified complications; T38.3X6A Underdosing of insulin and oral hypoglycemic [antidiabetic] drugs, initial encounter; Z91.128 Patient's intentional underdosing of medication regimen for other reason; Z91.14 Patient's other noncompliance with medication regimen; F17.200 Nicotine dependence, unspecified, uncomplicated
CPT/HCPCS: 99284; 96372; 82962; 81001; J1885